=== PATIENT | female | born 1945 | race Caucasian/White ===

== ENCOUNTER → 2017-11-09 17:57 | Outpatient (CLI) | payer OTHER | END | disposition home or self-care (01) | LOC: D.LABREF 17:57 | DX: R31.9 Hematuria, unspecified (principal) ==

== ENCOUNTER 2017-11-24 08:15 | Day surgery (SDC) | payer MEDICARE ==
[2017-11-23 14:50] LABS: HEMATOCRIT 43.9 % (36.0-48.0); HEMOGLOBIN 14.8 g/dL (12-16); MCH 29.2 pg (26.0-34.0); MCHC 33.7 g/dL (31.0-37.0); MCV 86.6 fL (80.0-100.0); MEAN PLATELET VOLUME 9.5 fL (7.4-10.4); RBC 5.07 10x6/uL (4.00-5.40); RDW 13.4 % (11.5-14.5)
[2017-11-23 15:04] LABS: ANION GAP 8.3 mmol/L (8-16); CALCIUM 9.6 mg/dL (8.5-10.1); CARBON DIOXIDE 32.4 mmol/L (21.0-32.0); CREATININE - SERUM 0.9 mg/dL (0.6-1.3); POTASSIUM - SERUM 3.7 mmol/L (3.5-5.1)
[~2017-11-24] VITALS: Ht 165.1 cm; Wt 85.3 kg
--- NOTE | ~2017-11-24 | OP ---
PATIENT NAME: DEE IRVING MEDICAL RECORD: [id number] :41 LOCATION:D.OPS ADMISSION DATE: SURGEON: MATTHEW LÓPEZ MD DATE OF OPERATION: 11/24/2017 SURGEON: Matthew López MD ANESTHESIA: MAC by Sancho Jules CRNA PREOPERATIVE DIAGNOSIS: Interstitial cystitis. PROCEDURES: Cystoscopy and intravesical Rimso instillation. FINDINGS: Single ureteral orifices bilaterally. No bladder tumors. Diffuse bladder inflammation. BLOOD LOSS: None. CLINICAL HISTORY: This is a 72-year-old female, who was referred by Dr. Santiago for treatment of interstitial cystitis and chronic pelvic pain. She has to void every 2 hours at night. There is no daytime frequency. She has suprapubic as well as pelvic pain. Thus far, her physician has been treating her interstitial cystitis with high doses of antihistamines. She previously had a workup for hematuria by Dr. Adarsh León of [place], [place]. He had performed cystoscopy in 2013 and said that her bladder was normal. In spite of these findings, her symptoms are highly suspicious of interstitial cystitis. We will be performing cystoscopy today for diagnosis. If bladder inflammation is seen, we will proceed with intravesical Rimso instillation for treatment of interstitial cystitis. SHE IS ALLERGIC TO CLINDAMYCIN AND SULFITES. She was given [facility] clinic receptionist to the OR. DESCRIPTION OF PROCEDURE: The patient was given IV sedation. She was then placed into dorsal lithotomy position and prepped and draped. A 21-Nepalese cystoscope with 30-degree lens was used for visualization. Diffuse bladder inflammation with glomerulations were found. No bladder tumors were seen. The scope was then used to drain the bladder completely. A 16-Nepalese red rubber catheter was inserted into the bladder and 50 mL of Rimso-50 solution was instilled into the bladder. The catheter was then removed, leaving the solution in the bladder. The patient will hold the solution in for about 15 minutes and then void it out. She will be seen in followup next week to have a second treatment performed in the office. TRANSINT:[id number] Voice Confirmation ID: [id number] DOCUMENT ID: [id number] MATTHEW LÓPEZ MD at 1422 CC: [id number] DICTATION DATE: 11/24/17 7557 LOCAL DELIVERY TRUCK DRIVER: 11/24/17 1416 [facility] [address] [place] [address]
[~2017-11-24 08:15] MED LIST: ASPIRIN EC81 M1 PO; BYSTOLIC5 MG PO; CRESTOR10 MG PO; LOSARTAN/HCT TAB 50- PO
[2017-11-24] MEDS ORDERED: CINNAMON500 MG PO (11:14)
[2017-11-24] MEDS ORDERED: VISTARIL25 MG (11:16)
[2017-11-24 11:18] VITALS: BP 123/76; Ht 165.1 cm; Wt 85.3 kg
== END 2017-11-24 16:00 | disposition home or self-care (01) ==
LOC: D.OPS 08:15 → D.PAN 09:45 → D.OPS 09:45
PROVIDERS: Anesthesiology
DX: N30.10 Interstitial cystitis (chronic) without hematuria (principal); Z01.812 Encounter for preprocedural laboratory examination